=== PATIENT | female | born 1995 | race Caucasian/White ===

== ENCOUNTER → 2022-05-10 | Outpatient (CLI) | payer OTHER ==
[~2022-05-10] VITALS: Ht 170.2 cm; Wt 67.4 kg
[~2022-05-10] MED LIST: ADDERALL PO; AMPH20CA PO; DEXT10TA4 PO; METO-558 PO
[2022-05-10 09:58] VITALS: BP 103/64
== END | disposition home or self-care (01) ==
LOC: EDUNIT# 04-18 10:15 → SRCNTR 09:25
PROVIDERS: ATTEND Hospitalist
DX: I95.1 Orthostatic hypotension (principal); F90.1 Attention-deficit hyperactivity disorder, predominantly hyperactive type; R00.0 Tachycardia, unspecified
CPT/HCPCS: G0463; Z7500

== ENCOUNTER 2022-09-07 15:34 | Emergency (ER) | payer OTHER ==
[~2022-09-07] VITALS: Ht 170.2 cm; Wt 68.2 kg
[~2022-09-07 15:34] MED LIST changes: +AMPH10CA PO; +METO-327 PO
[2022-09-07 16:04] VITALS: BP 110/71
[2022-09-07] MEDS ORDERED: LIDOCAINE 1% 10 ML VIAL SQ ONE (17:00)
[2022-09-07] MEDS ORDERED: DOXY100C51 PO (17:39)
== END 2022-09-07 17:44 | disposition home or self-care (01) ==
LOC: EMS 15:35
DX: L02.412 Cutaneous abscess of left axilla (principal); F90.9 Attention-deficit hyperactivity disorder, unspecified type; Z98.890 Other specified postprocedural states
CPT/HCPCS: 10060; 99282; 81025; J3490

== ENCOUNTER 2022-09-21 12:04 | Emergency (ER) | payer OTHER ==
[~2022-09-21] VITALS: Ht 170.2 cm; Wt 68.2 kg
[~2022-09-21 12:04] MED LIST changes: -ADDERALL PO; -AMPH20CA PO; -DEXT10TA4 PO; +DOXY100C51 PO; -METO-558 PO
[2022-09-21 13:09] VITALS: BP 133/74
[2022-09-21] MEDS ORDERED: BENZ-227 PO (13:12)
[2022-09-21] MEDS ORDERED: CIPR2.5D17 OS (13:12)
== END 2022-09-21 13:32 | disposition home or self-care (01) ==
LOC: EMS 12:04
DX: H10.9 Unspecified conjunctivitis (principal); J40 Bronchitis, not specified as acute or chronic; F90.9 Attention-deficit hyperactivity disorder, unspecified type; Z98.890 Other specified postprocedural states; Z88.0 Allergy status to penicillin
CPT/HCPCS: 71045; 99283